=== PATIENT | male | born 1975 | race Caucasian/White ===

== ENCOUNTER 2021-03-30 05:50 | Inpatient (IN) | payer OTHER, SELFPAY ==
[~2021-03-30] VITALS: Ht 180.3 cm; Wt 119.3 kg
[2021-03-30 05:55] VITALS: BP 136/68
[2021-03-30 06:25] LABS: ABG BASE EXCESS -1.6 mmol/L (-2.0-3.0); ABG HCO3 20.6 mmol/L (21.0-28.0); ABG OXYGEN SATURATION 81.3 % (95.0-99.0); ABG PCO2 29 mmHg (35-48)
[2021-03-30] MEDS ORDERED: 0.9% NACL 250ML IVPB ONE (07:30)
[2021-03-30] MEDS ORDERED: 0.9% NACL 250ML 250 ML IV SCH (07:30)
[2021-03-30] MEDS ORDERED: AZITHROMYCIN 500MG+NS 250ML IV SCH (07:30)
[2021-03-30] MEDS ORDERED: CEFTRIAXONE 1G VIAL IVP SCH (07:30)
[2021-03-30] MEDS ORDERED: AZITHROMYCIN 500MG VIAL IVPB ONE (07:30)
[2021-03-30] MEDS ORDERED: SOLU-MEDROL 125MG VIAL IVP SCH (07:30)
[2021-03-30] MEDS ORDERED: ACETAMINOPHEN 325 MG TAB ONE (08:16)
[2021-03-30] MEDS ORDERED: PHARMACY COMMUNICATION MISC SCH ×2 (08:30→12:30)
[2021-03-30 08:31] VITALS: BP 147/82
[2021-03-30 08:42] LABS: BASOPHILS % (AUTO) 0.1 % (0.0-5.0); HEMATOCRIT 40.2 % (42-54); LYMPHOCYTES % (AUTO) 11.7 % (21.0-51.0); MEAN CORPUSCULAR HEMOGLOBIN 30.7 pg (27.0-33.0); MEAN CORPUSCULAR HGB CONC 33.8 g/dL (32.0-36.0); MEAN CORPUSCULAR VOLUME 90.7 fL (79-99); MONOCYTES % (AUTO) 6.2 % (3.0-13.0); NEUTROPHILS % (AUTO) 80.2 % (40.0-77.0); PLATELET COUNT (AUTO) 221 K/uL (130-400); RED BLOOD CELL COUNT(AUTO) 4.43 MIL/uL (4.50-6.20); RED CELL DISTRIBUTION WIDTH 12.9 % (11.0-15.5); WHITE BLOOD COUNT (AUTO) 8.2 K/uL (4.8-10.8)
[2021-03-30 09:03] LABS: INR 1.05 (0.85-1.15); PROTHROMBIN TIME 11.4 SEC (9.6-11.6)
[2021-03-30 09:09] LABS: ALBUMIN 3.1 g/dL (3.5-5.0); BILIRUBIN,TOTAL 1.3 mg/dL (0.2-1.0); CREATININE 1.5 mg/dL (0.5-1.5); CRP QUANTITATIVE 95.5 mg/L (0.00-9.0); MAGNESIUM 2.1 mg/dL (1.80-2.40); POTASSIUM 4.1 mmol/L (3.5-5.1); TOTAL PROTEIN, SERUM 7.2 g/dL (6.0-8.3)
[2021-03-30 09:24] LABS: B-TYPE NATRIURETIC PEPTIDE 21 pg/mL (0-100)
[2021-03-30] MEDS: DEXAMETHASONE SOD PHOSPHATE 4 MG/ML 1ML VIAL IVP SCH (09:38)
[2021-03-30 10:38] VITALS: BP 136/63
[2021-03-30] MEDS ORDERED: ENOXAPARIN SODIUM 60 MG/0.6 ML SQ ONE (12:30)
[2021-03-30 14:37] VITALS: BP 134/76
[2021-03-30] MEDS: ENOXAPARIN SODIUM 60 MG/0.6 ML SQ SCH (15:00)
[2021-03-30] MEDS: PANTOPRAZOLE 40 MG TAB DR PO SCH (15:00)
[2021-03-30] MEDS: ALBUTEROL INHALER 90MCG/INH IH SCH ×2 (15:00→23:57)
[2021-03-30] MEDS: INSULIN HUMULIN R 100 UNIT/ML 3ML SQ SCH (16:30)
[2021-03-30 19:38] VITALS: BP 135/74
[2021-03-30 19:58] LABS: APPEARANCE,URINE Clear (CLEAR); BILIRUBIN,URINE Small (NEGATIVE); COLOR,URINE Dark Yellow (YELLOW); GLUCOSE, URINE (UA) Negative (NEGATIVE); KETONES,URINE Negative (NEGATIVE); LEUKOCYTE ESTERASE ,URINE Negative (NEGATIVE); NITRATE,URINE Negative (NEGATIVE); OCCULT BLOOD,URINE Negative (NEGATIVE); PROTEIN,URINE POS 2+ mg/dL (NEGATIVE)
[2021-03-30 20:06] LABS: AMPHET/METH SCREEN,URINE NEGATIVE (NEGATIVE); BARBITURATE SCREEN, URINE NEGATIVE (NEGATIVE); BENZODIAZEPINES SCREEN,URINE NEGATIVE (NEGATIVE); CANNABINOID SCREEN,URINE NEGATIVE (NEGATIVE); COCAINE SCREEN,URINE NEGATIVE (NEGATIVE); OPIATE SCREEN,URINE NEGATIVE (NEGATIVE); PHENCYCLIDINE SCREEN,URINE NEGATIVE (NEGATIVE)
[2021-03-30] MEDS: PHARMACY COMMUNICATION MISC SCH (20:08)
[2021-03-30 20:13] LABS: BACTERIA,URINE Few /HPF (None Seen); RBC,URINE 0-1 /HPF (0-1); SQUAMOUS EPITHELIAL CELL,UR Rare /HPF (0-2); WBC,URINE 0-1 /HPF (0-1)
[2021-03-30 23:43] VITALS: BP 131/79
[2021-03-31] MEDS: INSULIN HUMULIN R 100 UNIT/ML 3ML SQ SCH ×5 (01:07→21:00)
[2021-03-31] MEDS: PHARMACY COMMUNICATION MISC SCH ×2 (01:08→07:00)
[2021-03-31] MEDS ORDERED: ERGOCALCIFEROL (VITAMIN D2) 50,000 UNIT CAPSULE PO ONE (05:00)
[2021-03-31] MEDS: LACTATED RINGERS 1000ML 1,000 ML IV SCH ×2 (05:32→15:00)
[2021-03-31 05:39] VITALS: BP 129/74
[2021-03-31] MEDS: ALBUTEROL INHALER 90MCG/INH IH SCH ×4 (07:00→18:30)
[2021-03-31 08:27] LABS: BASOPHILS % (AUTO) 0.3 % (0.0-5.0); EOSINOPHILS % (AUTO) 0.7 % (0.0-8.0); HEMATOCRIT 43.5 % (42-54); LYMPHOCYTES % (AUTO) 9.1 % (21.0-51.0); MEAN CORPUSCULAR HEMOGLOBIN 30.6 pg (27.0-33.0); MEAN CORPUSCULAR HGB CONC 33.8 g/dL (32.0-36.0); MEAN CORPUSCULAR VOLUME 90.6 fL (79-99); MONOCYTES % (AUTO) 4.6 % (3.0-13.0); NEUTROPHILS % (AUTO) 82.6 % (40.0-77.0); PLATELET COUNT (AUTO) 285 K/uL (130-400); WHITE BLOOD COUNT (AUTO) 12.7 K/uL (4.8-10.8)
[2021-03-31] MEDS: PANTOPRAZOLE 40 MG TAB DR PO SCH (08:41)
[2021-03-31] MEDS: ZINC SULFATE 220 CAPSULE PO SCH (08:41)
[2021-03-31] MEDS: ASCORBIC ACID 500 MG TAB PO SCH (08:41)
[2021-03-31] MEDS: ENOXAPARIN SODIUM 60 MG/0.6 ML SQ SCH (08:41)
[2021-03-31] MEDS: DEXAMETHASONE SOD PHOSPHATE 4 MG/ML 1ML VIAL IVP SCH (08:41)
[2021-03-31 08:44] LABS: CRP QUANTITATIVE 170.4 mg/L (0.00-9.0)
[2021-03-31 08:53] LABS: CREATININE 1.2 mg/dL (0.5-1.5); POTASSIUM 3.5 mmol/L (3.5-5.1)
[2021-03-31 08:56] VITALS: BP 134/74
[2021-03-31 09:17] LABS: ALANINE AMINOTRANSFERASE 264 U/L (12-78); ALBUMIN 3.4 g/dL (3.5-5.0); ASPARTATE AMINOTRANSFERASE 107 U/L (10-37); BILIRUBIN,DIRECT < 0.1 mg/dL (0.0-0.3); TOTAL PROTEIN, SERUM 8.2 g/dL (6.0-8.3)
[2021-03-31] MEDS ORDERED: PHARMACY COMMUNICATION MISC SCH (13:30)
[2021-03-31] MEDS: ALPRAZOLAM 0.25 MG TABLET PO SCH ×2 (14:00→22:00)
[2021-03-31 14:16] VITALS: BP 134/74
[2021-03-31] MEDS ORDERED: REMDESIVIR (EUA) 520 200 MG in 0.9% NACL 250ML 250 ML IV ONE (15:00)
[2021-03-31] MEDS ORDERED: COMPOUND IV REFRIGERATED 1 EACH IVSOLN MISC PRN (15:00)
[2021-03-31 18:39] VITALS: BP 132/74
[2021-03-31] MEDS ORDERED: POTASSIUM CHLORIDE 10% ELIXIR 20 MEQ/15 ML UDCUP PO ONE (19:00)
[2021-04-01 00:32] VITALS: BP 165/89
[2021-04-01] MEDS: LACTATED RINGERS 1000ML 1,000 ML IV SCH ×3 (01:00→22:50)
[2021-04-01 05:42] VITALS: BP 158/82
[2021-04-01] MEDS: ALPRAZOLAM 0.25 MG TABLET PO SCH ×3 (06:00→22:50)
[2021-04-01] MEDS: REMDESIVIR LABS MISC SCH (06:00)
[2021-04-01] MEDS: ALBUTEROL INHALER 90MCG/INH IH SCH ×4 (06:39→17:17)
[2021-04-01] MEDS: INSULIN HUMULIN R 100 UNIT/ML 3ML SQ SCH ×4 (07:30→21:00)
[2021-04-01 08:09] LABS: HEMATOCRIT 41.9 % (42-54); MEAN CORPUSCULAR HEMOGLOBIN 30.3 pg (27.0-33.0); MEAN CORPUSCULAR HGB CONC 33.9 g/dL (32.0-36.0); MEAN CORPUSCULAR VOLUME 89.3 fL (79-99); RED BLOOD CELL COUNT(AUTO) 4.69 MIL/uL (4.50-6.20); WHITE BLOOD COUNT (AUTO) 11.3 K/uL (4.8-10.8)
[2021-04-01 08:34] LABS: CREATININE 1.1 mg/dL (0.5-1.5)
[2021-04-01] MEDS: DEXAMETHASONE SOD PHOSPHATE 4 MG/ML 1ML VIAL IVP SCH (09:09)
[2021-04-01] MEDS: PANTOPRAZOLE 40 MG TAB DR PO SCH (09:09)
[2021-04-01] MEDS: ASCORBIC ACID 500 MG TAB PO SCH (09:09)
[2021-04-01] MEDS: ZINC SULFATE 220 CAPSULE PO SCH (09:09)
[2021-04-01] MEDS: ENOXAPARIN SODIUM 60 MG/0.6 ML SQ SCH (09:10)
[2021-04-01 10:15] VITALS: BP 132/74
[2021-04-01 12:42] LABS: ALBUMIN 3.1 g/dL (3.5-5.0); BILIRUBIN,DIRECT 0.3 mg/dL (0.0-0.3); BILIRUBIN,TOTAL 0.9 mg/dL (0.2-1.0); TOTAL PROTEIN, SERUM 7.8 g/dL (6.0-8.3)
[2021-04-01] MEDS: REMDESIVIR (EUA) 520 100 MG in 0.9% NACL 250ML 250 ML IV SCH (15:36)
[2021-04-01 16:05] VITALS: BP 132/74
[2021-04-01 22:41] VITALS: BP 162/69
[2021-04-02] MEDS: ALBUTEROL INHALER 90MCG/INH IH SCH ×2 (00:26→07:24)
[2021-04-02] MEDS: ALPRAZOLAM 0.25 MG TABLET PO SCH (06:00)
[2021-04-02] MEDS: REMDESIVIR LABS MISC SCH (07:00)
[2021-04-02] MEDS: INSULIN HUMULIN R 100 UNIT/ML 3ML SQ SCH (07:30)
[2021-04-02 07:36] LABS: HEMATOCRIT 43.1 % (42-54); MEAN CORPUSCULAR HEMOGLOBIN 30.8 pg (27.0-33.0); MEAN CORPUSCULAR HGB CONC 34.1 g/dL (32.0-36.0); MEAN CORPUSCULAR VOLUME 90.2 fL (79-99); RED BLOOD CELL COUNT(AUTO) 4.78 MIL/uL (4.50-6.20); RED CELL DISTRIBUTION WIDTH 12.8 % (11.0-15.5); WHITE BLOOD COUNT (AUTO) 13.6 K/uL (4.8-10.8)
[2021-04-02 07:51] LABS: CRP QUANTITATIVE 71.6 mg/L (0.00-9.0); POTASSIUM 3.4 mmol/L (3.5-5.1)
[2021-04-02 07:52] VITALS: BP 135/74
[2021-04-02] MEDS ORDERED: METOCLOPRAMIDE 10 MG/2 ML VIAL IVP ONE (08:00)
[2021-04-02] MEDS: PANTOPRAZOLE 40 MG TAB DR PO SCH (08:11)
[2021-04-02] MEDS: ASCORBIC ACID 500 MG TAB PO SCH (08:11)
[2021-04-02] MEDS: ZINC SULFATE 220 CAPSULE PO SCH (08:11)
[2021-04-02] MEDS: LACTATED RINGERS 1000ML 1,000 ML IV SCH (08:11)
[2021-04-02] MEDS: DEXAMETHASONE SOD PHOSPHATE 4 MG/ML 1ML VIAL IVP SCH (08:11)
[2021-04-02] MEDS: ENOXAPARIN SODIUM 120 MG/0.8ML SQ SCH ×2 (08:13)
[2021-04-02] MEDS ORDERED: POTASSIUM CHLORIDE 10% ELIXIR 20 MEQ/15 ML UDCUP PO ONE (09:00)
[2021-04-02 09:40] LABS: ALBUMIN 3.3 g/dL (3.5-5.0); BILIRUBIN,DIRECT 0.4 mg/dL (0.0-0.3); BILIRUBIN,TOTAL 0.9 mg/dL (0.2-1.0)
[2021-04-02] MEDS: REMDESIVIR (EUA) 520 100 MG in 0.9% NACL 250ML 250 ML IV SCH (11:00)
== END 2021-04-02 13:20 | disposition home or self-care (01) | DRG 871 ==
LOC: EDH 05:50 → EDHIP 05:51
PROVIDERS: ADMIT Internal Medicine; ATTEND Internal Medicine
PROC: XW033E5 Introduction of Remdesivir Anti-infective into Peripheral Vein, Percutaneous Approach, New Technology Group 5 (ICD-10-PCS; principal; 2021-03-31)
PROC: 30233K1 Transfusion of Nonautologous Frozen Plasma into Peripheral Vein, Percutaneous Approach (ICD-10-PCS; 2021-03-31)
DX: A41.89 Other specified sepsis (principal); J12.82 Pneumonia due to coronavirus disease 2019; J80 Acute respiratory distress syndrome; U07.1 COVID-19; D68.59 Other primary thrombophilia; N17.9 Acute kidney failure, unspecified; B97.89 Other viral agents as the cause of diseases classified elsewhere; D64.9 Anemia, unspecified; E66.9 Obesity, unspecified; Z68.37 Body mass index [BMI] 37.0-37.9, adult; I10 Essential (primary) hypertension; K76.0 Fatty (change of) liver, not elsewhere classified
CPT/HCPCS: 36415; 36600; 71045; 76705; 80048; 80053; 80076; 80305; 81001; 82550; 82728; 82803; 82948; 83036; 83615; 83735; 83880; 84145; 84484; 85025; 85027; 85378; 85610; 86140; 86900; 86901; 86927; 87040; 87635; 87804; 93005; 93970; C9803; G0378; J0456; J0696; J1100; J1650; J2765; J2930; J7050; J7120